=== PATIENT | male | born 1990 | race Caucasian/White ===

== ENCOUNTER 2018-04-18 15:11 | Emergency (ER) | payer BC ==
[~2018-04-18] VITALS: Ht 172.7 cm; Wt 71.8 kg
[2018-04-18 15:38] VITALS: TEMP 98.5
[2018-04-18 19:29] LABS: BASO % 0.3 % (0.0-2.0); EOS # 0.1 (0.0-0.7); EOS % 1.2 % (0-4.0); GRAN # 3.7 (1.4-6.5); GRAN % 53.4 % (42.2-75.2); HEMATOCRIT 39.9 % (42.0-52.0); HEMOGLOBIN 13.4 g/dl (13.5-18.0); LYMPH # 2.2 (1.2-3.4); LYMPH % 31.7 % (20.0-51.0); MEAN CELL VOLUME 84 fl (80.0-100.0); MEAN CORPUSCULAR HEMOGLOBIN 28 pg (27.0-31.0); MEAN CORPUSCULAR HGB CONC 34 g/dl (33.0-37.0); MEAN PLATELET VOLUME 11.1 fl (7.4-10.4); MONO # 0.9 (0.1-0.6); MONO % 13.1 % (1.7-9.3); PLATELET COUNT 173 K/mm3 (130-400); RED BLOOD COUNT 4.73 M/mm3 (4.20-5.60); REDCELL DISTRIBUTION WIDTH-CV 12.9 % (11.5-14.5)
[2018-04-18 19:40] LABS: INR 1.2 (0.8-3.0)
[2018-04-18 19:45] LABS: ALBUMIN 4.2 gm/dL (3.5-5.0); BILIRUBIN,TOTAL 0.5 mg/dL (0.0-1.0); CALCIUM 9.6 mg/dL (8.4-10.2); CREATININE, serum 0.87 mg/dL (0.66-1.25); POTASSIUM 4.1 mmol/L (3.4-5.0); TOTAL PROTEIN 7.4 gm/dL (6.4-8.2)
[2018-04-18 20:02] LABS: TROPONIN-I 15.7 ng/mL (0.000-0.035)
[2018-04-18 20:20] LABS: C-REACTIVE PROTEIN 7.3 mg/dL (0.0-0.9)
[2018-04-18 21:35] VITALS: BP 105/68; PULSE 87
[2018-04-18 21:46] LABS: COLLECTION METHOD CLEAN CATCH
[2018-04-18 21:52] LABS: MUCOUS Present /lpf; PH 6 (5-8); SQUAMOUS EPITHELIAL 0-2 /hpf; URINE APPEARANCE Clear; URINE BACTERIA None Seen /hpf; URINE BILIRUBIN Negative (NEGATIVE); URINE BLOOD Negative (NEGATIVE); URINE COLOR Yellow; URINE GLUCOSE Negative (NEGATIVE); URINE KETONE 2+ (NEGATIVE); URINE LEUKOCYTE ESTERASE Negative (NEGATIVE); URINE NITRATE Negative (NEGATIVE); URINE PROTEIN(semi-quant) Negative (NEGATIVE); URINE RBC 0-2 /hpf; URINE UROBILINOGEN >=4.0 mg/dL (NEGATIVE)
[2018-04-18 21:57] LABS: TRICYCLIC ANTIDEPRESS URINE NEGATIVE
== END 2018-04-18 22:00 | disposition short-term general hospital (02) ==
LOC: COL.ER 15:11
PROVIDERS: Emergency Medicine
DX: I51.4 Myocarditis, unspecified (principal); R94.5 Abnormal results of liver function studies
CPT/HCPCS: J1644; J2765; J3010; J7030

== ENCOUNTER 2019-02-01 00:38 | Emergency (ER) | payer BC ==
[~2019-02-01] VITALS: Ht 172.7 cm; Wt 75.0 kg
[2019-02-01 00:54] VITALS: BP 127/88; TEMP 97.4
[2019-02-01 02:03] LABS: BASO % 0.5 % (0.0-2.0); EOS # 0.1 (0.0-0.7); EOS % 1.6 % (0-4.0); GRAN % 59.2 % (42.2-75.2); HEMATOCRIT 42.2 % (42.0-52.0); HEMOGLOBIN 14.2 g/dl (13.5-18.0); LYMPH # 2.5 (1.2-3.4); LYMPH % 29.7 % (20.0-51.0); MEAN CELL VOLUME 85 fl (80.0-100.0); MEAN CORPUSCULAR HEMOGLOBIN 29 pg (27.0-31.0); MEAN CORPUSCULAR HGB CONC 34 g/dl (33.0-37.0); MEAN PLATELET VOLUME 11.8 fl (7.4-10.4); MONO # 0.7 (0.1-0.6); MONO % 8.6 % (1.7-9.3); PLATELET COUNT 208 K/mm3 (130-400); RED BLOOD COUNT 4.97 M/mm3 (4.20-5.60)
[2019-02-01 02:18] LABS: ALBUMIN 4.6 gm/dL (3.5-5.0); BILIRUBIN,TOTAL 0.8 mg/dL (0.0-1.0); CALCIUM 9.9 mg/dL (8.4-10.2); CREATININE, serum 0.93 (0.66-1.25); POTASSIUM 3.8 mmol/L (3.4-5.0)
[2019-02-01] MEDS ORDERED: COMPAZINE 110 MG/TAB PO (02:44)
[2019-02-01 02:57] VITALS: PULSE 67
== END 2019-02-01 02:57 | disposition home or self-care (01) ==
LOC: COL.ER 00:38
PROVIDERS: Emergency Medicine
DX: R51 Headache (principal)
CPT/HCPCS: J0780; J1200; J7030

== ENCOUNTER 2019-06-08 21:19 | Emergency (ER) | payer BC ==
[~2019-06-08] VITALS: Ht 172.7 cm; Wt 75.0 kg
[~2019-06-08 21:19] MED LIST: COMPAZINE 110 MG/TAB PO
[2019-06-08 21:24] VITALS: BP 133/92; TEMP 97.9
[2019-06-08 22:35] VITALS: PULSE 50
== END 2019-06-08 22:35 | disposition home or self-care (01) ==
LOC: COL.ER 21:19
DX: S90.121A Contusion of right lesser toe(s) without damage to nail, initial encounter (principal); Z88.0 Allergy status to penicillin; W22.03XA Walked into furniture, initial encounter; Y92.009 Unspecified place in unspecified non-institutional (private) residence as the place of occurrence of the external cause

== ENCOUNTER 2021-09-27 16:39 | Emergency (ER) | payer BC ==
[~2021-09-27] VITALS: Ht 172.7 cm; Wt 65.9 kg
[2021-09-27 16:45] VITALS: TEMP 99
[2021-09-27 17:28] LABS: BASO % 0.3 % (0.0-2.0); EOS % 0.2 % (0.0-4.0); GRAN # 7.6 K/mm3 (1.4-6.5); GRAN % 76.2 % (42.2-75.2); HEMATOCRIT 38.7 % (42.0-52.0); HEMOGLOBIN 13.2 g/dl (13.5-18.0); LYMPH # 1.6 K/mm3 (1.2-3.4); LYMPH % 15.8 % (20.0-51.0); MEAN CELL VOLUME 84 fl (80.0-100.0); MEAN CORPUSCULAR HEMOGLOBIN 29 pg (27-31); MEAN CORPUSCULAR HGB CONC 34 g/dl (33.0-37.0); MEAN PLATELET VOLUME 11.6 fl (7.4-10.4); MONO # 0.7 K/mm3 (0.1-0.6); MONO % 7.1 % (1.7-9.3); PLATELET COUNT 227 K/mm3 (130-400); RED BLOOD COUNT 4.59 M/mm3 (4.20-5.60)
[2021-09-27 17:32] LABS: ALANINE AMINOTRANSFERASE 18 U/L (0-55); ALBUMIN 4.3 gm/dL (3.5-5.0); ALKALINE PHOSPHATASE 54 U/L (40-150); ANION GAP 11 mmol/L (7-16); AST,SGOT 13 U/L (5-34); BLOOD UREA NITROGEN 8 mg/dL (9-21); CALCIUM 9.6 mg/dL (8.4-10.2); CARBON DIOXIDE 23 mmol/L (22-29); CHLORIDE 103 mmol/L (98-107); CREATININE, serum 1.08 mg/dL (0.72-1.25); GLUCOSE 149 mg/dL (70-99); POTASSIUM 3.1 mmol/L (3.5-4.5); SODIUM 137 mmol/L (136-145); TOTAL PROTEIN 7.3 gm/dL (6.2-8.1)
[2021-09-27 17:39] LABS: TROPONIN-I < 0.010 ng/mL (0.00-0.033)
[2021-09-27] MEDS ORDERED: ATARAX 25MG25 MG/TAB PO (18:08)
[2021-09-27 18:40] VITALS: BP 127/89; PULSE 71
== END 2021-09-27 18:48 | disposition home or self-care (01) ==
LOC: COL.ER 16:39
PROVIDERS: Emergency Medicine
DX: U07.1 COVID-19 (principal); F41.9 Anxiety disorder, unspecified; Z28.310 Unvaccinated for COVID-19